=== PATIENT | female | born 1965 | race Caucasian/White ===

== ENCOUNTER 2017-04-13 12:23 | Emergency (ER) | payer OTHER ==
--- NOTE | 2017-04-13 14:23 | ED Physician Documentation ---
Head Injury - HISTORIAN Historian: patient - HPI Stated Complaint: Fall- Head Injury Chief Complaint: Head Injury Onset: just prior to arrival Where: other ([facility]) Timing: still present Context: fall Severity: moderate Loss of Consciousness: no loss of consciousness - ROS CONST: no problems CVS/RESP: none EYES/ENT: none MS/SKIN/LYMPH: neck pain (moderate). denies: weakness, numbness, back pain, ankle swelling, leg swelling, rash GI/: denies: nausea, vomiting, abdominal pain, problems urinating - PAST HX Past History: other (gerd, hypothyroidism, bipolar) Immunizations: UTD Allergies/Adverse Reactions: Allergies Allergy/AdvReac Type Severity Reaction Status Date / Time Penicillins Allergy Verified 04/13/17 12:44 Home Medications: Ambulatory Orders Medication Instructions Recorded Clozapine [Clozapine] 50 mg PO DAILY 04/13/17 Clozapine [Clozapine] 100 mg PO DAILY 04/13/17 Lamotrigine [Lamictal] 25 mg PO BID 04/13/17 Lamotrigine [Lamictal] 100 mg PO DAILY 04/13/17 Levothyroxine Sodium 50 mcg PO DAILY 04/13/17 [Levothyroxine Sodium] Ranitidine HCl [Ranitidine HCl] 150 mg PO DAILY 04/13/17 - SOCIAL HX Smoking History: cigarettes Alcohol Use: none Drug Use: none - FAMILY HX Family History: no significant history - VITAL SIGNS Vital Signs: Vital Signs Temp Pulse Resp BP Pulse Ox 97 F L 98 H 20 128/79 99 04/13/17 12:25 04/13/17 12:25 04/13/17 12:25 04/13/17 12:25 04/13/17 12:25 - REVIEWED ASSESSMENTS Nursing Assessment Reviewed: Yes Vitals Reviewed: Yes Progress - Results/Orders Results/Orders: ct head and c-spine ordered - Progress Progress: pt. stable entire time in er Critical Care Note - Critical Care Note Total Time (mins): 0 ED Results Lab/Radiology - Lab Results Lab Results: none ordered - Radiology Radiology Impressions: ct head and c-spine neg - Orders Orders: ED Orders Category Date Time Status CT BRAIN W/O CONTRAST Stat Exams 04/13/[address] C-SPINE W/O CONTRAST Stat Exams 04/13/17 Ordered Head Injury Physical Exam - Physical Exam General Appearance: no acute distress Head: trauma (abrasion frontal area). No: raccoon eyes, Varela's sign Neck: trachea midline, pain with neck movement (mild pain with rom, no limitation of rom, tenderness and increased muscle tone right paracedrvical muscles) Nexus Criteria: Nexus criteria neg Eyes: VANDANA, EOMI, lids & conjunct. nml ENT: nml external inspection, pharynx nml Neuro: alert, oriented x3 Cranial: nml as tested, no evidence of acute CVA Cerebellar: nml as tested Sensorimotor: motor nml, sensation nml Resp/CVS: chest non-tender, breath sounds nml, heart sounds nml, no resp. distress, lungs clear, reg. rate & rhythm Abdomen: non-tender, no organomegaly, nml bowel sounds, no distention Back: non-tender, painless ROM Skin: warm/dry, normal color Extremities: atraumatic, nml ROM, gait nml - [place] Coma Score Coma Scale Eye Opening: Spontaneous Coma Scale Verbal: Oriented Coma Scale Motor: Obeys Commands Discharge Clincal Impression: Minor head injury Qualifiers: Encounter type: initial encounter Qualified Code(s): S00.90XA - Unspecified superficial injury of unspecified part of head, initial encounter Acute cervical myofascial strain Qualifiers: Encounter type: initial encounter Qualified Code(s): S16.1XXA - Strain of muscle, fascia and tendon at neck level, initial encounter Comments: Discharged in stable condition with script for Skelaxin 800 mg 1 p.o. qid. Condition: Stable Disposition: 01 HOME, SELF-CARE Decision to Admit: NO Decision Time: 14:22
[2017-04-13 14:36] VITALS: BP 118/68
--- NOTE | 2017-04-13 14:37 | Diagnostic Imaging Report ---
JARET KIMBLE [facility] [address] [facility] [address] [place] [address]. 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 Findings: The alignment of the vertebrae is anatomic. Prevertebral soft tissues are within normal limits. The C1/C2 articulation is normal and the base of the odontoid is intact. There is no evident fracture. The diameter of the bony spinal canal is within normal limits. Impression: 1. Negative study. Electronically signed on Apr 13, 2017 1:59:26 PM STERILE SUPERVISOR by: Arie TOSCANO
--- NOTE | 2017-04-13 14:38 | Diagnostic Imaging Report ---
JARET KIMBLE [facility] [address] [facility] [address] [place] [address]. 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 Sagittal and coronal reconstructions are performed by the technologist. Findings: The 4th ventricle lies in a normal midline position. Ventricles and sulci are within normal limits for the patient's age. There is no hypodense or hyperdense mass or intracranial hemorrhage. Visualized paranasal sinuses and the mastoid air cells are clear. Impression: 1. Negative noncontrast head CT. Electronically signed on Apr 13, 2017 1:57:10 PM BROADCAST OPERATIONS DIRECTOR by: Arie TOSCANO
--- NOTE | 2017-04-13 18:43 | Diagnostic Imaging Report ---
JARET KIMBLE~ [facility] [address] [address] ~ ~ ~ ~ Report Submission Date: Apr 13, 2017 4:16:03 PM NEWS INTERNSHIP Patient ~ Study Name: MONO SCHULTZ ~ Date: Apr 13, 2017 4:04:16 PM [employer] ~ Modality Type: CR Gender: F ~ Description: CHEST : 67 ~ Institution: [facility] Physician: JARET KIMBLE ~ ~ ~ Chest PA and lateral views Clinical history: Chest pain Normal heart shadow and mediastinum. Clear lungs without acute infiltrate or pleural effusion. Moderate thoracic spondylosis. No pneumothorax. Impression: No active pulmonary pathology. ~ Electronically signed on Apr 13, 2017 4:16:03 PM [employer] by: Santi TOSCANO
== END 2017-04-13 16:25 ==
LOC: ED 12:23
DX: S00.90XA Unspecified superficial injury of unspecified part of head, initial encounter (principal); S16.1XXA Strain of muscle, fascia and tendon at neck level, initial encounter; W19.XXXA Unspecified fall, initial encounter; Y92.511 Restaurant or cafe as the place of occurrence of the external cause
CPT/HCPCS: 70450; 71020; 72125; 99283

== ENCOUNTER 2019-02-26 22:27 | Emergency (ER) | payer MEDICARE, OTHER ==
[2019-02-26 22:37] VITALS: BP 136/83
[2019-02-26] MEDS ORDERED: DIPH,PERTUSS(ACELL),TET VAC/PF 0.5 ML DISP.SYRIN IM ONE (22:44)
--- NOTE | 2019-02-26 22:46 | ED Physician Documentation ---
General Adult - HISTORIAN Historian: patient - HPI Stated Complaint: finger lac, left hand Chief Complaint: Laceration/Recheck/Suture Additional Information: Patient presents to ED with 2 cm laceration to left index finger. Patient states she cut it while slicing potatoes. Last tetanus vaccine was in 2006. Onset: minutes (20) Timing: still present Severity: mild - ROS CONST: no problems EYES/ENT: none CVS/RESP: none GI/: none MS/SKIN/LYMPH: none NEURO/PSYCH: denies: headache - PAST HX Past History: none Other History: none Allergies/Adverse Reactions: Allergies Allergy/AdvReac Type Severity Reaction Status Date / Time Penicillins Allergy Verified 04/13/17 12:44 Home Medications: Ambulatory Orders Medication Instructions Recorded Clozapine 50 mg PO DAILY 04/13/17 Clozapine 100 mg PO DAILY 04/13/17 Lamotrigine [Lamictal] 25 mg PO BID 04/13/17 Levothyroxine Sodium 50 mcg PO DAILY 04/13/17 Ranitidine HCl 150 mg PO DAILY 04/13/17 lamoTRIgine [Lamictal] 100 mg PO DAILY 04/13/17 - SOCIAL HX Smoking History: non-smoker Alcohol Use: none Drug Use: none - FAMILY HX Family History: No - VITAL SIGNS Vital Signs: Vital Signs Temp Pulse Resp BP Pulse Ox 97.3 F L 86 18 136/83 96 02/26/19 22:32 02/26/19 22:32 02/26/19 22:32 02/26/19 22:32 02/26/19 22:32 - REVIEWED ASSESSMENTS Nursing Assessment Reviewed: Yes Vitals Reviewed: Yes Procedures Wound Location: upper extremity (left index finger) Wound Length: 2 cm flap Wound's Depth, Shape: superficial, flap Wound Explored: clean Betadine Prep?: Yes Wound Debrided: minimal Wound Repaired With: Dermabond Layer Closure?: No Sterile Dressing Applied?: No Splint Applied?: No Sling Applied?: No ED Results Lab/Radiology - Orders Orders: ED Orders Category Date Time Status Diph,Pertuss(Acell),Tet Vac/Pf [Adacel] Med 02/26/19 22:44 Once 0.5 ml IM .ONCE ONE General Adult Physical Exam - PHYSICAL EXAM GENERAL APPEARANCE: no distress EENT: VANDANA NECK: normal inspection RESPIRATORY: breath sounds normal CVS: reg rate & rhythm, heart sounds normal ABDOMEN: soft, normal bowel sounds, non-tender BACK: no CVA tenderness SKIN: warm/dry EXTREMITIES: non-tender NEURO: oriented X3, mood/affect nml Discharge Clincal Impression: Laceration of left index finger Qualifiers: Encounter type: initial encounter Damage to nail status: without damage Foreign body presence: without foreign body Qualified Code(s): S61.211A - Laceration without foreign body of left index finger without damage to nail, initial encounter Referrals: Primary Doctor,No [Primary Care Provider] - 2 Days Additional Instructions: 1. Keep laceration dry. Do not use lotions, oils, creams, or ointments on laceration\ 2. Tylenol as needed for pain 3. Skin glue will wear off in 7-10 days. Do not pick at the glue 4. Follow up with PCP within 1 week 5. Return to ER for new or worsening symptoms Disposition: 01 HOME, SELF-CARE Decision to Admit: NO Date of Decison to Admit: 02/26/19 Decision Time: 22:52
== END 2019-02-26 22:55 | disposition home or self-care (01) ==
LOC: ED 22:27
DX: S61.211A Laceration without foreign body of left index finger without damage to nail, initial encounter (principal); W26.8XXA Contact with other sharp object(s), not elsewhere classified, initial encounter
CPT/HCPCS: 12001; 90471; 90715; 99282; 99284